=== PATIENT | male | born 1940 | race Caucasian/White ===

== ENCOUNTER 2019-10-17 19:53 | Observation (INO) | payer MEDICARE, OTHER ==
[2019-10-17] MEDS ORDERED: ONDANSETRON 4 MG TAB.RAPDIS PO ONE (20:12)
[2019-10-17] MEDS ORDERED: NORMAL SALINE 1000 ML 1,000 ML IV ONE (20:13)
--- NOTE | 2019-10-17 20:15 | ER Document Report ---
ED Medical Screen (RME) - General Chief Complaint: Nausea/Vomiting/Diarrhea Stated Complaint: NAUSEA,VOMITING,DIARRHEA Time Seen by Provider: 10/17/19 20:08 Notes: Patient is 79-year-old male who presents to the emergency department with a ivy f complaint of abdominal pain. Patient states that his pain started 2 days ago. Patient has had some nausea, vomiting, and diarrhea that started today. Denies any new foods. Patient is visiting from [place]. Exam: Rebound tenderness noted to entire abdomen. I have greeted and performed a rapid initial assessment of this patient. A comprehensive ED assessment and evaluation of the patient, analysis of test results and completion of medical decision making process will be conducted by an additional ED providers. - Related Data Allergies/Adverse Reactions: No Known Allergies Allergy (Unverified 10/17/19 19:59) Home Medications: Amlodipine. Calcium supplement Past Medical History - Social History Frequency of alcohol use: None Drug Abuse: None Physical Exam - Vital signs Vitals: Temp Pulse Resp BP Pulse Ox 98.3 F 115 H 20 142/72 H 96 10/17/19 20:00 10/17/19 20:00 10/17/19 20:00 10/17/19 20:00 10/17/19 20:00 Course - Vital Signs Vital signs: Temp Pulse Resp BP Pulse Ox 98.3 F 115 H 20 142/72 H 96 10/17/19 20:00 10/17/19 20:00 10/17/19 20:00 10/17/19 20:00 10/17/19 20:00
[2019-10-17 21:00] LABS: ABSOLUTE LYMPHOCYTES (AUTO) 1.1 10^3/uL (0.5-4.7); ABSOLUTE MONOCYTES (AUTO) 0.7 10^3/uL (0.1-1.4); ABSOLUTE NEUT (AUTO) 4.7 10^3/uL (1.7-8.2); BASOPHILS % (AUTO) 0.4 % (0-2); EOSINOPHILS % (AUTO) 0.3 % (0-6); HEMOGLOBIN 19.6 g/dL (13.5-17.0); MEAN CORPUSCULAR HEMOGLOBIN 32.9 pg (27.0-33.4); MEAN CORPUSCULAR HGB CONC 34.9 g/dL (32.0-36.0); MEAN CORPUSCULAR VOLUME 94 fl (80-97); MONOCYTES % (AUTO) 10.9 % (3-13); PLATELET COUNT 211 10^3/uL (150-450); RED BLOOD COUNT 5.96 10^6/uL (4.35-5.55); RED CELL DISTRIBUTION WIDTH 13.9 % (11.5-14.0); SEGMENTED NEUTROPHILS % (AUTO) 71.4 % (42-78); TOTAL CELLS COUNTED % (AUTO) 100 %; WHITE BLOOD COUNT 6.6 10^3/uL (4.0-10.5)
[2019-10-17 21:01] LABS: HEMATOCRIT 56.1 % (37.9-51.0)
[2019-10-17 21:04] LABS: APPEARANCE,URINE SLIGHTLY-CLOUDY; BILIRUBIN,URINE NEGATIVE (NEGATIVE); COLOR,URINE YELLOW; GLUCOSE, URINE NEGATIVE (NEGATIVE); KETONES,URINE NEGATIVE (NEGATIVE); LEUKOCYTE ESTERASE,URINE NEGATIVE (NEGATIVE); NITRITE,URINE NEGATIVE (NEGATIVE); PROTEIN,URINE 30 mg/dL (NEGATIVE)
[2019-10-17 21:20] LABS: ALBUMIN 5.3 g/dL (3.5-5.0); ALKALINE PHOSPHATASE 80 U/L (38-126); ANION GAP 13 (5-19); ASPARTATE AMINO TRANSFERASE 29 U/L (17-59); BILIRUBIN,DIRECT 0.1 mg/dL (0.0-0.4); BILIRUBIN,TOTAL 0.8 mg/dL (0.2-1.3); BLOOD UREA NITROGEN 21 mg/dL (7-20); CALCIUM 10.7 mg/dL (8.4-10.2); CARBON DIOXIDE 30 mmol/L (22-30); CHLORIDE 94 mmol/L (98-107); GLUCOSE 135 mg/dL (75-110); POTASSIUM 4.1 mmol/L (3.6-5.0)
--- NOTE | 2019-10-17 23:55 | RADIOLOGY REPORT (SQ) ---
EXAM DESCRIPTION: CT abdomen pelvis with contrast CLINICAL HISTORY: 79 years Male, abd pain COMPARISON: None. TECHNIQUE: Axial images of the abdomen and pelvis were performed utilizing intravenous contrast, with sagittal and coronal reformatted images. This exam was performed according to our departmental dose-optimization program which includes use of Automated Exposure Control, adjustment of the mA and/or kV according to patient size and/or use of iterative reconstruction technique. FINDINGS: There are multiple loops of dilated small bowel, with some normal caliber ileum, compatible with small bowel obstruction. There is a small amount of ascites in the pelvis. There is diverticulosis without diverticulitis. There are atherosclerotic changes involving the abdominal aorta, but there is no aneurysm. No evidence of appendicitis. There is no significant radiographic abnormality of the liver, spleen, pancreas, adrenal glands or kidneys. There are bilateral renal cysts. IMPRESSION: Small bowel obstruction. Small amount of pelvic ascites. Other findings as described.
[2019-10-18] MEDS ORDERED: NORMAL SALINE 1000 ML 1,000 ML IV ONE ×2 (01:50)
--- NOTE | 2019-10-18 01:50 | ER Document Report ---
ED GI/ - General Chief Complaint: Nausea/Vomiting/Diarrhea Stated Complaint: NAUSEA,VOMITING,DIARRHEA Time Seen by Provider: 10/17/19 20:08 Mode of Arrival: Ambulatory Information source: Patient Notes: Patient is an 79-year-old male presents emergency department concern for abdominal pain with intermittent nausea, vomiting and diarrhea. Patient has a history of having a bowel obstruction with resection 15 years ago. He also has a history of an incarcerated hernia with repair during the same timeframe. Patient reports intermittent abdominal pain, vomited 3 times on Wednesday, had a episode of diarrhea yesterday with persistent abdominal pain and had a bowel movement this morning. Patient reports his abdomen is large, firm and distended. He has not had any fever or chills. He is from [place]. - Related Data Allergies/Adverse Reactions: No Known Allergies Allergy (Unverified 10/17/19 19:59) Home Medications: Amlodipine. Calcium supplement Past Medical History - General Information source: Patient - Social History Smoking Status: Former Smoker Frequency of alcohol use: None Drug Abuse: None Family History: None, Reviewed & Not Pertinent Patient has homicidal ideation: No - Past Medical History Cardiac Medical History: Reports: Hx Hypertension Past Surgical History: Reports: Hx Abdominal Surgery - Incarcerated hernia with repair, Hx Bowel Surgery - Bowel obstruction with repair Review of Systems - Review of Systems Constitutional: No symptoms reported EENT: No symptoms reported Cardiovascular: No symptoms reported Respiratory: No symptoms reported Gastrointestinal: Abdomen distended, Abdominal pain, Diarrhea, Nausea, Vomiting Genitourinary: No symptoms reported Male Genitourinary: No symptoms reported Musculoskeletal: No symptoms reported Skin: No symptoms reported Hematologic/Lymphatic: No symptoms reported Neurological/Psychological: No symptoms reported Physical Exam - Vital signs Vitals: Temp Pulse Resp BP Pulse Ox 98.3 F 115 H 20 142/72 H 96 10/17/19 20:00 10/17/19 20:00 10/17/19 20:00 10/17/19 20:00 10/17/19 20:00 - Notes Notes: PHYSICAL EXAMINATION: GENERAL: Well-appearing, well-nourished and in no acute distress. HEAD: Atraumatic, normocephalic. EYES: Pupils equal round and reactive to light, extraocular movements intact, sclera anicteric, conjunctiva are normal. ENT: Nares patent, oropharynx clear without exudates. Moist mucous membranes. NECK: Normal range of motion, supple without lymphadenopathy LUNGS: Breath sounds clear to auscultation bilaterally and equal. No wheezes rales or rhonchi. HEART: Regular rate and rhythm without murmurs ABDOMEN: Firm distended abdomen. No guarding, no rebound. No masses appreciated. Musculoskeletal: Normal range of motion, no pitting or edema. No cyanosis. NEUROLOGICAL: Cranial nerves grossly intact. Normal speech, normal gait. Normal sensory, motor exams PSYCH: Normal mood, normal affect. SKIN: Warm, Dry, normal turgor, no rashes or lesions noted. Course - Re-evaluation Re-evalutation: Laboratory 10/17/19 10/17/19 10/17/19 20:29 20:29 20:29 WBC 6.6 RBC 5.96 H Hgb 19.6 H Hct 56.1 H MCV 94 MCH 32.9 MCHC 34.9 RDW 13.9 Plt Count 211 Lymph % (Auto) 17.0 [place] % (Auto) 10.9 Eos % (Auto) 0.3 Baso % (Auto) 0.4 Absolute Neuts (auto) 4.7 Absolute Lymphs (auto) 1.1 Absolute Monos (auto) 0.7 Absolute Eos (auto) 0.0 Absolute Basos (auto) 0.0 Seg Neutrophils % 71.4 Sodium 136.9 L Potassium 4.1 Chloride 94 L Carbon Dioxide 30 Anion Gap 13 BUN 21 H Creatinine 0.92 Est GFR ( Amer) > 60 Est GFR (MDRD) Non-Af > 60 Glucose 135 H Calcium 10.7 H Total Bilirubin 0.8 Direct Bilirubin 0.1 Neonat Total Bilirubin Not Reportable Neonat Direct Bilirubin Not Reportable Neonat Indirect Bili Not Reportable AST 29 ALT 24 Alkaline Phosphatase 80 Total Protein 9.0 H Albumin 5.3 H Lipase 286.9 Urine Color YELLOW Urine Appearance SLIGHTLY-CLOUDY Urine pH 5.0 Ur Specific [place] 1.020 Urine Protein 30 H Urine Glucose (UA) NEGATIVE Urine Ketones NEGATIVE Urine Blood SMALL H Urine Nitrite NEGATIVE Urine Bilirubin NEGATIVE Urine Urobilinogen 2.0 H Ur Leukocyte Esterase NEGATIVE Urine WBC (Auto) 1 Urine RBC (Auto) 4 U Hyaline Cast (Auto) 3 Urine Bacteria (Auto) TRACE Squamous Epi Cells Auto <1 Urine Mucus (Auto) FEW Urine Ascorbic Acid NEGATIVE Abdomen/Pelvis CT 07/28/20 00:00 IMPRESSION: Small bowel obstruction. Small amount of pelvic ascites. Other findings as described. 10/18/19 02:05 DR. FARR consulted. He does not believe this is a true bowel obstruction but instead a ileus versus partial bowel obstruction. He would like medicine to admit and he will consult. 10/18/19 02:12 Called and spoke with hospitalist, Dr. Sullivan, he would like an NG tube placed in the patient and he will come to evaluate. Dr. Cosby came to the emergency department, he is personally evaluated the patient. He would like us to hold off on placing the NG tube until Dr. Sullivan physically evaluate the patient. The patient remained stable, he is no pain at this time. He has been updated on the plan of care and is agreeable to same. Patient will be admitted to hospitalist service. - Vital Signs Vital signs: Temp Pulse Resp BP Pulse Ox 97.9 F 91 18 153/75 H 95 10/18/19 00:08 10/18/19 00:08 10/18/19 00:08 10/18/19 00:08 10/18/19 00:08 - Laboratory Result Diagrams: 10/17/19 20:29 10/17/19 20:29 Laboratory results interpreted by me: 10/17/19 10/17/19 10/17/19 20:29 20:29 20:29 RBC 5.96 H Hgb 19.6 H Hct 56.1 H Sodium 136.9 L Chloride 94 L BUN 21 H Glucose 135 H Calcium 10.7 H Total Protein 9.0 H Albumin 5.3 H Urine Protein 30 H Urine Blood SMALL H Urine Urobilinogen 2.0 H Discharge - Discharge Clinical Impression: Nausea and vomiting Qualifiers: Vomiting type: bilious vomiting Qualified Code(s): R11.14 - Bilious vomiting Condition: Stable Disposition: ADMITTED OBSERVATION Admitting Provider: Laurie (Hospitalist) Unit Admitted: Medical Floor
[2019-10-18] MEDS ORDERED: ONDANSETRON HCL INJ/PF 4 MG/2 ML SDV IV PRN (03:08)
--- NOTE | 2019-10-18 03:23 | PDOC H&P ---
History of Present Illness History of Present Illness: RADHA BOLAND is a 79 year old male with a history of hypertension, hyperlipidemia, and history of bowel obstruction with resection and reanastomosis about 15 years ago who presents with 2 days of abdominal symptoms. He said he has had some nausea and vomiting that started Wednesday and he felt like he had a lot of abdominal bloating as well. No fevers. He said he had a bowel movement yesterday morning. He felt like he was not getting any better and he was staying very nauseated and felt like he had persistent abdominal distention and so his convinced him to come to the hospital. He is here from [place] visiting family. Abdominal CT showed what looked like a partial small bowel obstruction. He had the oral contrast in the ER and tolerated that without vomiting it. He says he has been passing gas in the ER and does not feel nauseated anymore. Past Medical History Cardiac Medical History: Reports: Hypertension Social History Smoking Status: Former Smoker Family History Family History: None, Reviewed & Not Pertinent Parental Family History Reviewed: Yes Children Family History Reviewed: Yes Sibling(s) Family History Reviewed.: Yes Medication/Allergy Allergies/Adverse Reactions: No Known Allergies Allergy (Unverified 10/17/19 19:59) Review of Systems All systems: reviewed and no additional remarkable complaints except as stated - All systems were reviewed and were negative except as noted in the HPI Physical Exam Vital Signs: Temp Pulse Resp BP Pulse Ox 97.9 F 91 18 153/75 H 95 10/18/19 00:08 10/18/19 00:08 10/18/19 00:08 10/18/19 00:08 10/18/19 00:08 Intake & Output 10/16/19 10/17/19 10/18/19 06:59 06:59 06:59 Weight 66 kg General appearance: PRESENT: no acute distress, cooperative, disheveled Head exam: PRESENT: atraumatic, normocephalic Eye exam: PRESENT: EOMI, PERRLA. ABSENT: conjunctival injection, nystagmus, scleral icterus Ear exam: PRESENT: normal external ear exam Mouth exam: PRESENT: moist, neck supple Throat exam: ABSENT: post pharyngeal erythema Neck exam: PRESENT: full ROM. ABSENT: carotid bruit, JVD, lymphadenopathy, meningismus, tenderness, thyromegaly Respiratory exam: PRESENT: clear to auscultation melanie, symmetrical, unlabored. ABSENT: accessory muscle use, chest wall tenderness, crackles, prolonged expiratory phas, rhonchi, tachypnea, wheezes Cardiovascular exam: PRESENT: RRR, +S1, +S2 Pulses: PRESENT: normal carotid pulses Vascular exam: PRESENT: normal capillary refill GI/Abdominal exam: PRESENT: normal bowel sounds, soft. ABSENT: distended, guarding, rebound, tenderness Extremities exam: ABSENT: clubbing, pedal edema Musculoskeletal exam: PRESENT: normal inspection. ABSENT: deformity Neurological exam: PRESENT: alert, awake, oriented to person, oriented to place, oriented to time, oriented to situation, CN II-XII grossly intact. ABSENT: motor sensory deficit Psychiatric exam: PRESENT: appropriate affect, normal mood Skin exam: PRESENT: dry, warm Results Laboratory Results: 10/17/19 20:29 10/17/19 20:29 10/17/19 10/17/19 10/17/19 20:29 20:29 20:29 WBC 6.6 RBC 5.96 H Hgb 19.6 H Hct 56.1 H MCV 94 MCH 32.9 MCHC 34.9 RDW 13.9 Plt Count 211 Seg Neutrophils % 71.4 Sodium 136.9 L Potassium 4.1 Chloride 94 L Carbon Dioxide 30 Anion Gap 13 BUN 21 H Creatinine 0.92 Est GFR ( Amer) > 60 Glucose 135 H Calcium 10.7 H Total Bilirubin 0.8 AST 29 Alkaline Phosphatase 80 Total Protein 9.0 H Albumin 5.3 H Lipase 286.9 Urine Color YELLOW Urine Appearance SLIGHTLY-CLOUDY Urine pH 5.0 Ur Specific [place] 1.020 Urine Protein 30 H Urine Glucose (UA) NEGATIVE Urine Ketones NEGATIVE Urine Blood SMALL H Urine Nitrite NEGATIVE Ur Leukocyte Esterase NEGATIVE Urine WBC (Auto) 1 Urine RBC (Auto) 4 Impressions: Abdomen/Pelvis CT 10/17/19 00:00 IMPRESSION: Small bowel obstruction. Small amount of pelvic ascites. Other findings as described. Assessment and Plan - Diagnosis (1) Nausea and vomiting Qualifiers: Vomiting type: bilious vomiting Qualified Code(s): R11.14 - Bilious vomiting Is this a current diagnosis for this admission?: Yes Plan: This seems to be mostly resolved now. He said his belly feels a lot better and he is passing gas and is not nauseated. We will put him on some clear liquids and resume his home blood pressure medication and watch him for a little while and see if he remains stable. He was seen in the ER by Dr. Cosby. (2) Hypertension Qualifiers: Hypertension type: essential hypertension Qualified Code(s): I10 - Essential (primary) hypertension Is this a current diagnosis for this admission?: Yes Plan: He said he takes benazepril and amlodipine at home. We have continued these medications. - Time Time Spent with patient: 35 or more minutes Anticipated Discharge Disposition: Home, Self Care Anticipated Discharge: within 24 hours
--- NOTE | 2019-10-18 06:13 | PDOC CONSULTATION ---
Consultation Consult Date: 10/18/19 Attending physician:: ARGENTINA MOSCOSO Provider Consulted: LAZARO TALBOT Consult reason:: abdominal bloating History of Present Illness Admission Date/PCP: 10/18/19 03:45 History of Present Illness: RADHA BOLAND is a 79 year old male with a history of hypertension, hyperlipidemia, and history of bowel obstruction with resection and reanastomosis about 15 years ago who presents with 2 days of abdominal symptoms. He said he has had some nausea and vomiting that started Wednesday and he felt like he had a lot of abdominal bloating as well. No fevers. He said he had a bowel movement yesterday morning. He felt like he was not getting any better and he was staying very nauseated and felt like he had persistent abdominal distention and so his convinced him to come to the hospital. He is here from [place] visiting family. Abdominal CT showed what looked like a partial small bowel obstruction. He had the oral contrast in the ER and tolerated that without vomiting it. He says he has been passing gas in the ER and does not feel nauseated anymore Past Medical History Cardiac Medical History: Reports: Hypertension Past Surgical History Past Surgical History: Reports: Other - small bowel resection of incarcerated groin hernia Social History Smoking Status: Former Smoker Family History Family History: None, Reviewed & Not Pertinent Parental Family History Reviewed: No Children Family History Reviewed: NA Sibling(s) Family History Reviewed.: NA Medication/Allergy Allergies/Adverse Reactions: No Known Allergies Allergy (Unverified 10/17/19 19:59) Review of Systems Constitutional: PRESENT: fatigue Eyes: ABSENT: as per HPI, visual disturbances, other Ears: ABSENT: as per HPI, hearing changes, other Nose, Mouth, and Throat: ABSENT: as per HPI, headache(s), mouth pain, sore throat, vertigo, other Breasts: ABSENT: as per HPI, other Cardiovascular: ABSENT: as per HPI, chest pain, dyspnea on exertion, edema, orthropnea, palpitations, other Respiratory: ABSENT: as per HPI, cough, dyspnea, hemoptysis, sputum, other Gastrointestinal: PRESENT: abdominal pain, bloating, diarrhea. ABSENT: dysphagia Genitourinary: ABSENT: as per HPI, difficulty urinating, dysuria, hematuria, nocturia, other Musculoskeletal: ABSENT: as per HPI, back pain, deformity, joint swelling, muscl e weakness, other Integumentary: ABSENT: as per HPI, diaphoresis, erythema, lesions, pruritus, rash, wounds, other Neurological: ABSENT: as per HPI, abnormal gait, abnormal movements, abnormal speech, confusion, convulsions, dizziness, focal weakness, frequent falls, lack of coordination, memory loss, numbness, paresthesias, restless legs, syncope, tingling, tremor(s), vertigo, weakness, other Psychiatric: ABSENT: as per HPI, anxiety, depression, hallucinations, homidical ideation, suicidal ideation, other Endocrine: ABSENT: as per HPI, cold intolerance, flushing, heat intolerance, menstrual abnormalities, polydipsia, polyphagia, polyuria, other Hematologic/Lymphatic: ABSENT: as per HPI, easy bleeding, easy bruising, lymphadenopathy, other Allergic/Immunologic: ABSENT: as per HPI, seasonal rhinorrhea, other Physical Exam Vital Signs: Temp Pulse Resp BP Pulse Ox 97.5 F 81 14 137/67 H 95 10/18/19 06:05 10/18/19 06:05 10/18/19 06:05 10/18/19 06:05 10/18/19 06:05 Intake & Output 10/16/19 10/17/19 10/18/19 06:59 06:59 06:59 Intake Total 1999 Balance 1999 Weight 66 kg General appearance: PRESENT: no acute distress Head exam: PRESENT: normocephalic Eye exam: PRESENT: EOMI Ear exam: PRESENT: normal external ear exam Mouth exam: PRESENT: moist Neck exam: PRESENT: full ROM Respiratory exam: PRESENT: clear to auscultation melanie Cardiovascular exam: PRESENT: RRR Pulses: PRESENT: normal radial pulses, normal femoral pulses Vascular exam: PRESENT: normal capillary refill Breast: PRESENT: Normal GI/Abdominal exam: PRESENT: soft Rectal exam: PRESENT: deferred Extremities exam: PRESENT: full ROM Musculoskeletal exam: PRESENT: full ROM Neurological exam: PRESENT: alert, awake, oriented to person, oriented to place Psychiatric exam: PRESENT: appropriate affect Skin exam: PRESENT: dry Results Laboratory Results: 10/17/19 20:29 10/17/19 20:29 10/17/19 10/17/19 10/17/19 20:29 20:29 20:29 WBC 6.6 RBC 5.96 H Hgb 19.6 H Hct 56.1 H MCV 94 MCH 32.9 MCHC 34.9 RDW 13.9 Plt Count 211 Seg Neutrophils % 71.4 Sodium 136.9 L Potassium 4.1 Chloride 94 L Carbon Dioxide 30 Anion Gap 13 BUN 21 H Creatinine 0.92 Est GFR ( Amer) > 60 Glucose 135 H Calcium 10.7 H Total Bilirubin 0.8 AST 29 Alkaline Phosphatase 80 Total Protein 9.0 H Albumin 5.3 H Lipase 286.9 Urine Color YELLOW Urine Appearance SLIGHTLY-CLOUDY Urine pH 5.0 Ur Specific [place] 1.020 Urine Protein 30 H Urine Glucose (UA) NEGATIVE Urine Ketones NEGATIVE Urine Blood SMALL H Urine Nitrite NEGATIVE Ur Leukocyte Esterase NEGATIVE Urine WBC (Auto) 1 Urine RBC (Auto) 4 Impressions: Abdomen/Pelvis CT 10/17/19 00:00 IMPRESSION: Small bowel obstruction. Small amount of pelvic ascites. Other findings as described. Assessment & Plan - Plan Summary Plan Summary: ct reviewed pt passing stool and flatus mild diliation of small bowel on ct scan doubt complete sbo, suspect may be gasroenteritis agree with trial of clear liquids and observation overnght.
[2019-10-18] MEDS ORDERED: BENAZEPRIL HCL 10 MG TABLET PO SCH (10:00)
[2019-10-18] MEDS ORDERED: AMLODIPINE BESYLATE 5 MG TABLET PO SCH (10:00)
--- NOTE | 2019-10-18 12:18 | PDOC DISCHARGE SUMMARY ---
Impression - Admit/DC Date/PCP Admission Date/Primary Care Provider: 10/18/19 03:45 Discharge Date: 10/18/19 - Discharge Diagnosis (1) Gastroenteritis Is this a current diagnosis for this admission?: Yes (2) Nausea and vomiting Is this a current diagnosis for this admission?: Yes (3) Hypertension Is this a current diagnosis for this admission?: Yes - Additional Information Discharge Diet: As Tolerated Discharge Activity: Activity As Tolerated Prescriptions: Ondansetron [Zofran Odt 4 mg Tablet] 1 - 2 tab PO Q4HP PRN #10 tab.rapdis PRN Reason: Home Medications: Ondansetron [Zofran Odt 4 mg Tablet] 1 - 2 tab PO Q4HP PRN #10 tab.rapdis 10/18/19 History of Present Illiness History of Present Illness: According to admitting provider: RADHA BOLAND is a 79 year old male with a history of hypertension, hyperlipidemia, and history of bowel obstruction with resection and reanastomosis about 15 years ago who presents with 2 days of abdominal symptoms. He said he has had some nausea and vomiting that started Wednesday and he felt like he had a lot of abdominal bloating as well. No fevers. He said he had a bowel movement yesterday morning. He felt like he was not getting any better and he was staying very nauseated and felt like he had persistent abdominal distention and so his convinced him to come to the hospital. He is here from [place] visiting family. Abdominal CT showed what looked like a partial small bowel obstruction. He had the oral contrast in the ER and tolerated that without vomiting it. He says he has been passing gas in the ER and does not feel nauseated anymore. Hospital Course Hospital Course: Patient was admitted to the hospital for evaluation of nausea and vomiting. Patient had also had some abdominal pain as well as diarrhea. Abdominal CAT scan revealed possibility of small bowel obstruction. Patient was evaluated by surgery who deemed that patient was not having small bowel obstruction given that he was having bowel movements and passing gas freely. It was thought that patient was having gastroenteritis which I think fits better with his constellation of signs and symptoms. Patient was put on a liquid diet which she has tolerated very well. This morning patient states that he feels very well and back to normal and that his nausea vomiting and abdominal pain have all resolved. States that he did well with his breakfast this morning. Would like to be discharged. Patient giving prescription for Zofran in case his nausea vomiting through record. Patient encouraged to stay hydrated. Physical Exam Vital Signs: Temp Pulse Resp BP Pulse Ox 98.1 F 81 18 150/75 H 95 10/18/19 11:21 10/18/19 11:21 10/18/19 11:21 10/18/19 11:21 10/18/19 11:21 Intake & Output 10/17/19 10/18/19 10/19/19 06:59 06:59 06:59 Intake Total 1999 Balance 1999 Weight 66 kg General appearance: PRESENT: no acute distress, cooperative Neck exam: ABSENT: JVD Respiratory exam: PRESENT: clear to auscultation melanie. ABSENT: unlabored Cardiovascular exam: PRESENT: +S1, +S2. ABSENT: tachycardia GI/Abdominal exam: PRESENT: normal bowel sounds, soft. ABSENT: firm, guarding, rebound, rigid, tenderness Neurological exam: PRESENT: alert, awake Results Laboratory Results: WBC 6.6 10^3/uL (4.0-10.5) 10/17/19 20: RBC 5.96 10^6/uL (4.35-5.55) H 10/17/19 20: Hgb 19.6 g/dL (13.5-17.0) H 10/17/19 20: Hct 56.1 % (37.9-51.0) H 10/17/19 20: MCV 94 fl (80-97) 10/17/19 20: MCH 32.9 pg (27.0-33.4) 10/17/19 20: MCHC 34.9 g/dL (32.0-36.0) 10/17/19 20: RDW 13.9 % (11.5-14.0) 10/17/19 20: Plt Count 211 10^3/uL (150-450) 10/17/19 20: Lymph % (Auto) 17.0 % (13-45) 10/17/19 20: [place] % (Auto) 10.9 % (3-13) 10/17/19 20: Eos % (Auto) 0.3 % (0-6) 10/17/19 20: Baso % (Auto) 0.4 % (0-2) 10/17/19 20: Absolute Neuts (auto) 4.7 10^3/uL (1.7-8.2) 10/17/19 20: Absolute Lymphs (auto) 1.1 10^3/uL (0.5-4.7) 10/17/19 20: Absolute Monos (auto) 0.7 10^3/uL (0.1-1.4) 10/17/19 20: Absolute Eos (auto) 0.0 10^3/uL (0.0-0.6) 10/17/19 20: Absolute Basos (auto) 0.0 10^3/uL (0.0-0.2) 10/17/19 20: Seg Neutrophils % 71.4 % (42-78) 10/17/19 20: Sodium 136.9 mmol/L (137-145) L 10/17/19 20: Potassium 4.1 mmol/L (3.6-5.0) 10/17/19 20: Chloride 94 mmol/L (98-107) L 10/17/19 20: Carbon Dioxide 30 mmol/L (22-30) 10/17/19 20: Anion Gap 13 (5-19) 10/17/19 20: BUN 21 mg/dL (7-20) H 10/17/19 20: Creatinine 0.92 mg/dL (0.52-1.25) 10/17/19 20: Est GFR ( Amer) > 60 (>60) 10/17/19 20: Est GFR (MDRD) Non-Af > 60 (>60) 10/17/19 20: Glucose 135 mg/dL (75-110) H 10/17/19 20: Calcium 10.7 mg/dL (8.4-10.2) H 10/17/19 20: Total Bilirubin 0.8 mg/dL (0.2-1.3) 10/17/19 20: Direct Bilirubin 0.1 mg/dL (0.0-0.4) 10/17/19 20:29 Neonat Total Bilirubin Not Reportable 10/17/19 20: Neonat Direct Bilirubin Not Reportable 10/17/19 20: Neonat Indirect Bili Not Reportable 10/17/19 20: AST 29 U/L (17-59) 10/17/19 20: ALT 24 U/L (<50) 10/17/19 20: Alkaline Phosphatase 80 U/L (38-126) 10/17/19 20: Total Protein 9.0 g/dL (6.3-8.2) H 10/17/19 20: Albumin 5.3 g/dL (3.5-5.0) H 10/17/19 20: Lipase 286.9 U/L (23-300) 10/17/19 20: Urine Color YELLOW 10/17/19 20: Urine Appearance SLIGHTLY-CLOUDY 10/17/19 20: Urine pH 5.0 (5.0-9.0) 10/17/19 20: Ur Specific [place] 1.020 10/17/19 20: Urine Protein 30 mg/dL (NEGATIVE) H 10/17/19 20: Urine Glucose (UA) NEGATIVE mg/dL (NEGATIVE) 10/17/19 20: Urine Ketones NEGATIVE mg/dL (NEGATIVE) 10/17/19 20: Urine Blood SMALL (NEGATIVE) H 10/17/19 20: Urine Nitrite NEGATIVE (NEGATIVE) 10/17/19 20: Urine Bilirubin NEGATIVE (NEGATIVE) 10/17/19 20: Urine Urobilinogen 2.0 mg/dL (<2.0) H 10/17/19 20:29 Ur Leukocyte Esterase NEGATIVE (NEGATIVE) 10/17/19 20: Urine WBC (Auto) 1 /HPF 10/17/19 20: Urine RBC (Auto) 4 /HPF 10/17/19 20:29 U Hyaline Cast (Auto) 3 /LPF 10/17/19 20:29 Urine Bacteria (Auto) TRACE /HPF 10/17/19 20: Squamous Epi Cells Auto <1 /HPF 10/17/19 20:29 Urine Mucus (Auto) FEW /LPF 10/17/19 20:29 Urine Ascorbic Acid NEGATIVE (NEGATIVE) 10/17/19 20:29 Impressions: Abdomen/Pelvis CT 10/17/19 00:00 IMPRESSION: Small bowel obstruction. Small amount of pelvic ascites. Other findings as described. Plan Time Spent: Less than 30 Minutes Stroke Is this a Stroke Patient?: No Acute Heart Failure - Is this a Heart Failure Patient?: No
[2019-10-18 12:24] VITALS: BP 148/73
== END 2019-10-18 12:38 | disposition home or self-care (01) ==
LOC: ER 19:53 → EH 10-18 03:45
PROVIDERS: ADMIT Family Medicine; ATTEND Family Medicine
DX: K52.9 Noninfective gastroenteritis and colitis, unspecified (principal); R11.14 Bilious vomiting; I10 Essential (primary) hypertension; Z90.49 Acquired absence of other specified parts of digestive tract; Z87.891 Personal history of nicotine dependence; Z79.899 Other long term (current) drug therapy; Z98.0 Intestinal bypass and anastomosis status
CPT/HCPCS: 99285; 96360; 96361; 36415; 83690; 85025; 80053; 81001; 74177; A9270 ×3; J7030; J3490; S0119